=== PATIENT | female | born 1980 | race Caucasian/White ===

== ENCOUNTER 2019-05-17 12:31 | Emergency (ER) | payer OTHER, SELFPAY ==
[2019-05-17 12:48] VITALS: BP 107/71; PULSE 91; RESP 20; TEMP 37.3; O2SAT 100
--- NOTE | 2019-05-17 13:07 | ED.GENADULT ---
HPI - General Adult General Chief complaint: Upper Respiratory Infection Stated complaint: Cough/Chest Congestion Time Seen by Provider: 05/17/19 13:07 Source: patient and RN notes reviewed Mode of arrival: ambulatory Limitations: no limitations History of Present Illness HPI narrative: 38-year-old female presents with complains of upper respiratory symptoms and dry cough for 4 days. Tylenol Cold and flu (last 1 day ago) Mucinex (last this morning), and Nyquil (last 05/16/19) without relief. Constant dry cough, chest congestion, intermittent chest tenderness with coughing. Rhinorrhea and nasal congestion. Sore throat. Pain bilateral. Hurts to swallow. No high fevers, drooling, neck or throat swelling. No cardiac chest pain, wheezing, or shortness of breath. Nikki exacerbation factors consist of vaping. Denies nausea, vomiting, and abdominal pain. Tolerating liquids well. Nikki denies being , LMP 2 weeks ago and on control. Remains active. Some parts of this dictation were generated by voice recognition software and may contain typographical and/or grammatical inaccuracies. Related Data Home Medications Medication Instructions Recorded Confirmed citalopram [Celexa] 40 mg PO DAILY 05/17/19 05/17/19 norgestimate-ethinyl estradiol 1 tablet PO DAILY 05/17/19 05/17/19 [Ortho Tri-Cyclen (28)] Allergies Allergy/AdvReac Type Severity Reaction Status Date / Time No Known Allergies Allergy Verified 05/17/19 13:00 Review of Systems Review of Systems: Narrative: CONSTITUTIONAL: Denies fever, chills, sweats. EYES: Denies visual changes, redness, discharge. ENT: Complains of rhinorrhea, congestion, sore throat. Denies otalgia. CARDIOVASCULAR: Denies chest pain, palpitations, edema. RESPIRATORY: Denies dyspnea, wheezing. Complains of dry cough, chest congestion. GASTROINTESTINAL: Denies abdominal pain, nausea, vomiting, diarrhea. GENITOURINARY: Denies dysuria, hematuria, abnormal discharge. SKIN: Denies rash or itching. MUSCULOSKELETAL: Denies acute back pain, joint pain, or myalgia. Complains of intermittent diffuse chest wall tenderness. NEUROLOGIC: Denies numbness or focal weakness. PSYCHIATRIC: Denies anxiety or depression. [facility] Past Medical History Medical History (Updated 05/18/19 @ 00:00 by Background Daemon) Anxiety Depression Comments At time of signature, agree with nurse past medical, surgical, social, and family history. There is no relevant family history pertinent to the presenting complaint. Exam Narrative: Exam Narrative: GENERAL: This is a well-nourished, well-developed patient, in no apparent distress. Talks in full sentences and ambulates with steady gait without dyspnea. HEAD: normocephalic, atraumatic. EYES: PERRL. Sclera clear/white. Vision is grossly intact. EARS: External ears normal, auditory canals clear and without drainage, TMs normal without perforation. Hearing grossly intact. NOSE: External nose normal with no obvious nasal discharge, nares with mild redness and enlarged turbinates, yellow rhinorrhea. THROAT: Mucous membranes moist, posterior pharynx clear. Mild erythema, tonsils normal. NECK: Neck supple, non-tender without lymphadenopathy, masses or thyromegaly. CARDIOVASCULAR: Regular rate and rhythm without murmurs, gallops, or rubs. Diffused moderate reproducible tenderness to upper chest. No crepitus/subq air palpable. Skin intact. No ecchymosis or lesions. No subcutaneous emphysema. RESPIRATORY: Clear to auscultation. Breath sounds equal bilaterally. No wheezes, rales, or rhonchi. Dry cough. GASTROINTESTINAL: Abdomen soft, non-tender, nondistended. Bowel sounds are active. No hepato-splenomegaly, or palpable masses. No guarding. SKIN: warm, intact with no suspicious lesions or rash, good texture and turgor. NEURO: awake, alert, and oriented to person, place and time. There were no obvious focal neurologic abnormalities. EXTREMITIES: No clubbing, cyanosis, or e
== END 2019-05-17 13:27 | disposition home or self-care (01) ==
PROVIDERS: Emergency Provider Nurse Practitioner Family
DX: J40 Bronchitis, not specified as acute or chronic (principal); M94.0 Chondrocostal junction syndrome [Tietze]; F32.9 Major depressive disorder, single episode, unspecified; F41.9 Anxiety disorder, unspecified
CPT/HCPCS: 99213; G0463

== ENCOUNTER 2024-05-28 10:58 | Emergency (ER) | payer OTHER, SELFPAY ==
[2024-05-28 11:04] VITALS: BP 147/98; PULSE 91; RESP 18; TEMP 36.9; O2SAT 100
--- OUTSIDE RECORDS SUMMARY | 2024-05-28 11:38 | XMS_ITS | Referral Summary ---
Author Organization [facility] Physician Office Building [address] [place] [address] Care Team Providers Care Extrusion Supervisor Name Role Phone Ole Perez MD Primary Care Provider [phone] Ole Jiang MD Unavailable [phone] Westley Anthony MD Unavailable [phone] Binh Nelson MD Unavailable [phone] Allergies Active Allergy Reactions Criticality Noted Date Comments Gabapentin Other (See comments),Mental status changes Low 08/27/2022 Confusion, feels foggy can't think straight Medications ALPRAZolam (XANAX) 0.25 mg tablet Take 1 tablet (0.25 mg total) by mouth 3 (three) times a day as needed for anxiety 02/10/2020 Active citalopram (CeleXA) 20 mg tablet Take 1 tablet (20 mg total) by mouth nightly 03/10/2020 Active cyclobenzaprine (FLEXERIL) 10 mg tablet Take 1 tablet (10 mg total) by mouth 2 (two) times a day as needed for muscle spasms 40 tablet 08/23/2020 Active levothyroxine (SYNTHROID) 25 mcg tablet Take 1 tablet (25 mcg total) by mouth every morning 08/14/2022 Active acetaminophen (TYLENOL) 500 mg tabletIndicatio ns:Pain Take 2 tablets (1,000 mg total) by mouth every 6 (six) hours as needed for pain 60 tablet 10/17/2022 Active ibuprofen (ADVIL,MOTRIN) 600 mg tabletIndicatio ns:Pain Take 1 tablet (600 mg total) by mouth every 6 (six) hours as needed for pain 30 tablet 10/17/2022 Active polyethylene glycol (MIRALAX) 17 gram/dose powder Take 17 g by mouth daily 289 g 10/17/2022 Active oxyCODONE (ROXICODONE) 5 mg immediate release tabletIndicatio ns:Pain Take 1 tablet (5 mg total) by mouth every 4 (four) hours as needed for pain 15 tablet 10/17/2022 Active Active Problems Problem Noted Date Diagnosed Date Uterine bleeding 08/05/2022 Pelvic and perineal pain 08/05/2022 Perianal abscess 12/05/2021 s/p ALIF/PSF at L5-S1 with L 5 Rachel santiagoi on 04/04/[address] Soto 04/04/2020 Acute sinusitis 02/14/2014 Overview (07/26/2016): Acute sinusitis Immunizations Name Administration Dates Next Due Influenza, Unspecified 01/20/2020 Social History Tobacco Use Types Packs/Day Years Used Date Smoking Tobacco: Former Cigarettes Q uit: 03/28/2014 Smokeless Tobacco: Never Tobacco Cessation:Counseling Given: Not Answered Alcohol Use Standard Drinks/Week Comments Yes 0 (1 standard drink = 0.6 oz pur e alcohol) occasionally Social Connection and Isolat ion Panel [NHANES] Answer Date Recorded In a typical week, how many times do you talk on the phone with family, friends, or neighbors? More than three times a week 04/05/2020 How often do you get togethe r with friends or relatives? More than three times a week 04/05/2020 How often do you attend [facility] or latter day services? Never 04/05/2020 Do you belong to any clubs o r organizations such as sabianist groups, unions, fraternal or athletic groups, or school groups? No 04/05/2020 How often do you attend meet ings of the clubs or organizations you belong to? Never 04/05/2020 Are you , , di vorced, , never , or living with a partner? Never 04/05/2020 AUDIT-C Answer Date Recorded Q1: How often do you have a drink containing alc ohol? 2-4 times a month 08/27/2022 Q2: How many drinks containi ng alcohol do you have on a typical day when you are drinking? 1 or 2 08/27/2022 Q3: How often do you have si x or more drinks on one occasion? Never 08/27/2022 Overall Financial Resource Strain (CARDIA) Answe r Date Recorded How hard is it for you to pa y for the very basics like food, housing, medical care, and heating? Not hard at all 04/05/2020 Hunger Vital Sign Answer Date Recorded Within the past 12 months, y ou worried that your food would run out before you got the money to buy more. Never true 11/12/19 23 Within the past 12 months, t he food you bought just didn't last and you didn't have money to get more. Never true 11/11/2022 PRAPARE - Transportation Answer Date Re corded In the past 12 months, has l ack of transportation kept you from medical appointments or from getting medications? No 03/21 In the past 12 months, has l ack of transportation kept you from meetings, work, or from getting things needed for daily living? No 04/05/2020 Personal Safety Answer Date Recorded Have you ever been in or are you currently in a harmful physical or emotional relationship or is someone making you feel afraid or unsafe? 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 Gender Identity Not on file Sexual Orientation Not on file Last Filed Vital Signs Vital Sign Reading Time Taken Comments Blood Pressure 127/83 01/07/2023 1:19 PM CDT Pulse 83 01/07/2023 1:19 PM CDT Temperature 36.7 C (98 F) 11/11/2022 11:30 AM CDT Respiratory Rate 26 10/17/2022 11:40 AM CDT Oxygen Saturation 100% 01/07/2023 1:19 PM CDT Inhaled Oxygen Concentration - - Weight 76.2 kg (168 lb 1.6 oz) 01/07/2023 1:19 P M CDT Height 157.5 cm (5' 2 ) 11/11/2022 11:30 AM CDT Body Mass Index 30.75 11/11/2022 11:30 AM CDT Plan of Treatment Not on file Medical Devices Implanted Type Area Beater Out Device Identifier Shelf Expiration Date Model / Serial / Lot Medtronic Sofamor Danek [id number] Infuse Kit Xs Graft Bone Rhbmp-2 Bovine Collagen Lumbar Taper - [id number] Implanted:Qty: 1 on 04/04/2020 by Raman Soto MD at [facility] N/A: Spine Lumbar Medtronic Inc 12/19/2020 [id number] / / [id number] Maureen Spine [id number] 20d Cage Spinal Titanium Porous Sterile - [id number] Implanted:Qty: 1 on 04/04/2020 by Raman Soto MD at [facility] N/A: Spine Lumbar Papillion Spine 03/27/2024 [id number] / / [id number] Spinal Graft Tech [id number] Mayes Putty Jar Graft 5cc Bone Demineralized Bone Matrix - [id number] - [id number] Implanted:Qty: 1 on 04/04/2020 by Raman Soto MD at [facility] N/A: Spine Lumbar Medtronic Inc 01/05/2023 [id number] / [id number] / Maureen Spine [id number] [place] [id number] Spine Buttress Plate Bone Nonsterile - [id number] Implanted:Qty: 1 on 04/04/2020 by Raman Soto MD at [facility] N/A: Spine Lumbar Papillion Spine [id number] / / K2m Llc [id number] [place] Od6 Mm L24 Mm Implant; Buttress Spine Screw Bone Teal - [id number] Implanted:Qty: 1 on 04/04/2020 by Raman Soto MD at [facility] N/A: Spine Lumbar Maureen Spine [id number] / / K2m Llc [id number] [place] Spine Screw Set Mcgrath - [id number] Implanted:Qty: 4 on 04/04/2020 by Raman Soto MD at [facility] N/A: Spine Lumbar Maureen Spine [id number] / / K2m Llc [id number] [place] Od6.5 Mm L40 Mm Polyaxial Spine Screw Bone - [id number] Implanted:Qty: 4 on 04/04/2020 by Raman Soto MD at [facility] N/A: Spine Lumbar Papillion Spine [id number] / / K2m Llc [id number] Od5.5 Mm L40 Mm Contour Xander Spinal Mcgrath - [id number] Implanted:Qty: 2 on 04/04/2020 by Raman Soto MD at [facility] N/A: Spine Lumbar Papillion Spine [id number] / / Spinal Graft Tech [id number] Alejandra Putty Jar Graft 5cc Bone Demineralized Bone Matrix - [id number] - [id number] Implanted:Qty: 1 on 04/04/2020 by Raman Soto MD at [facility] N/A: Spine Lumbar Medtronic Inc 01/05/2023 [id number] / [id number] / [facility] Advance Directives For more information, please contact: [phone] * Full Code (Latest Code Status on File) Date Activated Date Inactivated Comments 10/17/2022 10:18 AM 10/17/2022 4:10 PM * Full Code Date Activated Date Inactivated Comments 04/04/2020 7:02 PM 04/06/2020 7:20 PM Care Teams Extrusion Supervisor Relationship Specialty Start Date End Date Ole Perez MD PCP - General 07/23/15 Ole Jiang MD [address] [place] [address] Referring Physician Surgery 11/19/21 Westley Anthony MD [phone] [place] [address] Surgeon Colon and Rectal Surgery 12/05/21 Binh Nelson MD [address] [place] [address] [address] Evaporator Operator Obstetrics and Gynecology 05/22/22
--- OUTSIDE RECORDS SUMMARY | 2024-05-28 11:38 | XMS_ITS | Clinical Summary ---
Author Organization [facility] Address [address] [place] [address] Phone Care Team Providers Care Iron Piler Name Role Phone Ole Perez MD Primary Care Provider [phone] Allergies No known active allergies Medications buPROPion (WELLBUTRIN) 300 MG TABLET SR 24 HR XL tablet 07/19/2020 Active ALPRAZolam (XANAX) 0.25 MG Tablet 07/03/2020 Acti ve citalopram (CeleXA) 20 MG Tablet 06/16/2020 Active oxyCODONE (ROXICODONE) 5 MG Tablet 07/04/2020 Active cyclobenzaprine (FLEXERIL) 10 MG Tablet 07/03/2020 Active Social History Tobacco Use Types Packs/Day Years Used Date Smoking Tobacco: Never Smokeless Tobacco: Never Alcohol Use Standard Drinks/Week Comments Yes 0 (1 standard drink = 0.6 oz pur e alcohol) Comments Unknown Sex and Gender Information Value Date Recorded Sex Assigned at Not on file Legal Sex Female 11:36 PM CDT Gender Identity Not on file Sexual Orientation Not on file Last Filed Vital Signs Vital Sign Reading Time Taken Comments Blood Pressure 119/76 07/27/2020 8:59 PM CDT Pulse 89 07/27/2020 8:59 PM CDT Temperature 37.1 C (98.7 F) 07/27/2020 5:05 PM CDT Respiratory Rate 20 07/27/2020 8:59 PM CDT Oxygen Saturation 99% 07/27/2020 8:59 PM CDT Inhaled Oxygen Concentration - - Weight 74.8 kg (165 lb) 07/27/2020 5:05 PM CDT Height 157.5 cm (5' 2 ) 07/27/2020 5:05 PM CDT Body Mass Index 30.18 07/27/2020 5:05 PM CDT Plan of Treatment Health Maintenance Due Date Last Done Comments Hepatitis C Virus (HCV) Screening 1981 TdaP Immunization 1981 Hepatitis B Immunization (1 of 3 - 19+ 3-dose series) 2000 Pap Smear 2002 Cervical Cancer Screening (CCS) 09/15/2011 HPV/Cotest 09/15/2011 Discussion re Starting/Frequ ency of Mammograms 2021 Influenza Immunization (#1) 2023 SARS-COV-2 Immunization ( - 2023- season) 2023 Respiratory Syncytial Virus (RSV) Immunization (Adult) (1 - 1-dose 75+ series) 2056 Meningococcal Immunization (ACWY) Aged Out No longer eligible based on patient's age to complete this topic Pneumococcal Immunization Combined Aged Out No longer eligible based on patient's age to complete this topic Rotavirus Immunization Aged Out No lo nger eligible based on patient's age to complete this topic Insurance MEDICAID REES MEDICAID [place]ES [place] MEDPA Care Teams Iron Piler Relationship Specialty Start Date End Date Ole Perez MD [address] [place] [phone] PCP - General Family Medicine 07/27/20
--- OUTSIDE RECORDS SUMMARY | 2024-05-28 11:38 | XMS_ITS | Clinical Summary ---
Author Organization [facility] Physician Office Building [address] [place] [address] Care Team Providers Care Searchlight Operator Name Role Phone Ole Perez MD Primary Care Provider [phone] Ole Jiang MD Unavailable [phone] Westley Anthony MD Unavailable [phone] Binh Nelson MD Unavailable [phone] Allergies Active Allergy Reactions Criticality Noted [...] ALIF/PSF at L5-S1 with L 5 Rachel ozuna on 04/04/[address] Soto 04/04/2020 Acute sinusitis 02/14/2014 Overview (07/26/2016): Acute sinusitis Immunizations Name Administration Dates Next Due Influenza, Unspecified 01/20/2020 Surgical History Surgery Date Site/Laterality Comments CHOLECYSTECTOMY 04/21/2007 - 04/20/2008 SECTION X 3 Medical History Medical History Date Comments Depression Depression Anxiety Spondylolisthesis at L5-S1 level Arthritis Neuropathy (CMS/HCC) Carpal tunnel syndrome right Family History Medical History Relation Name Comments Colon polyps Father Diverticulitis Father Diabetes Mother Heart disease Mother Hypertension Mother Relation Name Status Comments Father Mother Social History Tobacco Use Types Packs/Day Years [...] week 04/05/2020 How often do you attend chur ch or worship services? 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 Gender Identity Not on file Sexual Orientation Not on file Obstetrics History Last Filed Vital Signs Vital Sign Reading [...] 11/11/2022 11:30 AM CDT Plan of Treatment Health Maintenance Due Date Last Done Comments Breast Cancer Screening-Mammogram 1981 Depression Screening 1981 Hepatitis C Screening 1981 DTaP/Tdap/Td Vaccine (5 - Tdap) 1992 12/04/1988, 12/05/1987, 10/31/1986, Additional history exists Varicella Vaccines (1 of 2 - 13+ 2-dose series) 1994 Hepatitis B Screening 09/15/1999 Regular Well Visit/Exam 18-64 09/15/1999 Influenza Vaccine (#1) 2023 01/20/2020 HPV Vaccines Aged Out No longer eligi ble based on patient's age to complete this topic Pneumococcal vaccine <65 Aged Out No longer eligible based on patient's age to complete this topic Medical Devices Implanted Type Area Data Virtualization Consultant Device Identifier Shelf Expiration Date Model / Serial / Lot Medtronic Sofamor Danek [id number] Infuse Kit Xs Graft Bone Rhbmp-2 Bovine Collagen Lumbar Taper - [id number] Implanted:Qty: 1 on 04/04/2020 by Raman Soto MD at [facility] N/A: Spine Lumbar Medtronic Inc 12/19/2020 [id number] / / [id number] [place] Spine [id number] 20d Cage Spinal Titanium Porous Sterile - [id number] Implanted:Qty: 1 on 04/04/2020 by Raman Soto MD at [facility] N/A: Spine Lumbar [place] Spine 03/27/2024 [id number] / / [id number] Spinal Graft Tech [id number] Alejandra Putty Jar Graft 5cc Bone Demineralized Bone Matrix - [id number] - [id number] Implanted:Qty: 1 on 04/04/2020 by Raman Soto MD at [facility] N/A: Spine Lumbar Medtronic Inc 01/05/2023 [id number] / [id number] / [place] Spine 1408-40f22 [place] [id number] Spine Buttress Plate Bone Nonsterile - [id number] Implanted:Qty: 1 on 04/04/2020 by Raman Soto MD at [facility] N/A: Spine Lumbar [place] Spine [id number] / / K2m Llc [id number] [place] Od6 Mm L24 Mm Implant; Buttress Spine Screw Bone Teal - [id number] Implanted:Qty: 1 on 04/04/2020 by Raman Soto MD at [facility] N/A: Spine Lumbar [place] Spine [id number] / / K2m Llc [id number] [place] Spine Screw Set Mcgrath - [id number] Implanted:Qty: 4 on 04/04/2020 by Raman Soto MD at [facility] N/A: Spine Lumbar [place] Spine [id number] / / K2m Llc [id number] [place] Od6.5 Mm L40 Mm Polyaxial Spine Screw Bone - [id number] Implanted:Qty: 4 on 04/04/2020 by Raman Soto MD at [facility] N/A: Spine Lumbar [place] Spine [id number] / / K2m Llc [id number] Od5.5 Mm L40 Mm Contour Xander Spinal Mcgrath - [id number] Implanted:Qty: 2 on 04/04/2020 by Raman Soto MD at [facility] N/A: Spine Lumbar Maureen Spine [id number] / / Spinal Graft Tech [id number] Alejandra Putty Jar Graft 5cc Bone Demineralized Bone Matrix - [id number] - [id number] Implanted:Qty: 1 on 04/04/2020 by Raman Soto MD at [facility] N/A: Spine Lumbar Medtronic Inc 01/05/2023 [id number] / [id number] / Insurance [id number] [place] [address] Advance Directives For more information, please contact: [phone] * Full Code (Latest Code Status on File) Date Activated Date Inactivated Comments 10/17/2022 10:18 AM 10/17/2022 4:10 PM * Full Code Date Activated Date Inactivated Comments 04/04/2020 7:02 PM 04/06/2020 7:20 PM Care Teams Searchlight Operator Relationship Specialty Start Date End Date Ole Perez MD PCP - General 07/23/15 Ole Jiang MD [address] [place] [address] Referring Physician Surgery 11/19/21 Westley Anthony MD [phone] [place] [address] Surgeon Colon and Rectal Surgery 12/05/21 Binh Nelson MD [address] [place] [address] [address] Ticket Broker Obstetrics and Gynecology 05/22/22
--- NOTE | 2024-05-28 11:58 | ED_ITS ---
HPI - Ear Problem General Chief complaint: Ear Stated complaint: ear pain Time Seen by Provider: 05/28/24 11:58 Source: patient Mode of arrival: ambulatory Limitations: no limitations History of Present Illness HPI Narrative: 43-year-old female presents with complaint of sinus congestion, sinus pressure and headaches for the past 2-3 weeks. Reports intermittent fevers over the last 3 days with pressure to bilateral ears. Taking [id number]-[id number] sinus medications without relief of symptoms. All systems reviewed and negative except as noted above. Related Data Home Medications ?Medication ?Instructions ?Recorded ?Confirmed ?Last Taken ?Type citalopram 40 mg tablet (Celexa) 40 mg PO DAILY 05/17/19 05/17/19 Unknown History norgestimate-ethinyl estradiol 1 tablet PO DAILY 05/17/19 05/17/19 Unknown History 0.18 mg/0.215mg/0.25mg-35 mcg(28)tablet (Ortho Tri-Cyclen (28)) alprazolam 0.25 mg tablet mg 05/28/24 Unknown History cyclobenzaprine 10 mg tablet mg 05/28/24 Unknown History levothyroxine 25 mcg tablet mcg 05/28/24 Unknown History tramadol 50 mg tablet mg 05/28/24 Unknown History Allergies Allergy/AdvReac Type Severity Reaction Status Date / Time No Known Allergies Allergy Verified 05/28/24 11:20 Review of Systems 2 Review of Systems: CONSTITUTIONAL: Denies fever, chills, or sweats. EYES: Denies visual changes, redness, or discharge. ENT: Reports rhinorrhea, congestion, sinus pressure, bilateral ear pressure. Denies sore throat CARDIOVASCULAR: Denies chest pain, palpitations, or edema. RESPIRATORY: Denies cough or dyspnea. GASTROINTESTINAL: Denies abdominal pain, nausea, vomiting, or diarrhea. GENITOURINARY: Denies dysuria or hematuria. SKIN: Denies rash or itching. MUSCULOSKELETAL: Denies back pain, joint pain, or myalgia. NEUROLOGIC: Denies headache, numbness, or weakness. PSYCHIATRIC: Denies anxiety or depression. All other systems reviewed are negative, except as documented in HPI. [facility] Past Medical History Medical History (Updated 05/28/24 @ 12:03 by Jeanette Valdez NP) Depression Anxiety Comments At time of signature, agree with nursing past medical, surgical, social and family history. There is no relevant family history pertinent to the presenting complaint. Exam Narrative: GENERAL: This is a well-nourished, well-developed patient, Ill-appearing but no acute distress HEAD: normocephalic, atraumatic. EYES: PERRL. Sclera clear/white. Vision is grossly intact. EARS: External ears normal, auditory canals clear and without drainage, TMs normal without perforation. Hearing grossly intact. NOSE: External nose normal with purulent nasal drainage, erythema and swelling to bilateral nares. Frontal and maxillary sinus tenderness on palpation bilaterally. THROAT: Mucous membranes moist, posterior pharynx clear. NECK: Neck supple, non-tender without lymphadenopathy, masses or thyromegaly. CARDIOVASCULAR: Regular rate and rhythm without murmurs, gallops, or rubs. RESPIRATORY: Clear to auscultation. Breath sounds equal bilaterally. No wheezes, rales, or rhonchi. SKIN: warm, Dry, intact with no suspicious lesions or rash, good texture and turgor. NEURO: awake, alert, and oriented to person, place and time. There were no obvious focal neurologic abnormalities. EXTREMITIES: No joint tenderness, effusion, or edema noted. Course Course Level of Care: Express Care Visit Vital Signs Vital signs: Vital Signs Temperature 36.9 C 05/28/24 11:04 Pulse Rate 91 05/28/24 11:04 Respiratory Rate 18 05/28/24 11:04 Blood Pressure 147/98 H 05/28/24 11:04 Pulse Oximetry 100 05/28/24 11:04 Oxygen Delivery Room Air 05/28/24 11:04 Temperature 36.9 C 05/28/24 11:04 Pulse Rate 91 05/28/24 11:04 Respiratory Rate 18 05/28/24 11:04 Blood Pressure 147/98 H 05/28/24 11:04 Pulse Oximetry 100 05/28/24 11:04 Oxygen Delivery Room Air 05/28/24 11:04 reviewed Medical Decision Making MDM Narrative Medical decision making narrative: will treat patient for bacterial sinusitis due to duration of symptoms and exam findings. Lung sounds clear to auscultation. Patient is alert, nontoxic. Please be advised this is a medical document. It is intended for [id number] communication. It is written in medical language and may contain unfamiliar abbreviations or verbiage. Medical documents are intended to carry relevant information, facts as evident, and the clinical opinion of the practitioner at the time of the encounter. This report may have been done utilizing a voice recognition system. Attempts have been made to correct errors. However, there may be uncorrected grammatical, spelling, and recognition errors present. The file time of this note does not necessarily represent the time of service. Vital Signs Vital Signs: Vital Signs Temperature 36.9 C 05/28/24 11:04 Pulse Rate 91 05/28/24 11:04 Respiratory Rate 18 05/28/24 11:04 Blood Pressure 147/98 H 05/28/24 11:04 Pulse Oximetry 100 05/28/24 11:04 Oxygen Delivery Room Air 05/28/24 11:04 Temperature 36.9 C 05/28/24 11:04 Pulse Rate 91 05/28/24 11:04 Respiratory Rate 18 05/28/24 11:04 Blood Pressure 147/98 H 05/28/24 11:04 Pulse Oximetry 100 05/28/24 11:04 Oxygen Delivery Room Air 05/28/24 11:04 Discharge Plan Discharge Clinical Impression: Acute bacterial sinusitis Patient Disposition: Home, Self-Care Condition: Stable Instructions: Antibiotic Form, Sinusitis (ED) Additional Instructions: take antibiotic as prescribed until gone. Continue taking ilsw-tay-awiafgy medication to treat her symptoms such as DayQuil NyQuil cold and Sinus. May use an hncl-nbb-tdqwecm nasal spray such as Flonase or Nasacort as directed on packaging. Place cool mist humidifier in bedroom where you sleep. Follow-up with your primary care physician if symptoms are not improving. Patient Language: Citizen Of [place] Prescriptions: New amoxicillin-pot clavulanate 875-125 mg tablet 1 tablet PO Q12H 7 Days Qty: 14 0RF No Action citalopram [Celexa] 40 mg Tablet 40 mg PO DAILY norgestimate-ethinyl estradiol [Ortho Tri-Cyclen (28)] 0.18/0.215/0.25 mg-35 mcg (28) Tablet 1 tablet PO DAILY loratadine [Claritin] 10 mg tablet 10 mg PO DAILY 60 Days Qty: 60 0RF cyclobenzaprine 10 mg tablet tramadol 50 mg tablet levothyroxine 25 mcg tablet alprazolam 0.25 mg tablet Follow-up/Referrals: Ana,MD Ole [Primary Care Provider] - Time of Disposition: 12:04
== END 2024-05-28 12:12 | disposition home or self-care (01) ==
PROVIDERS: Emergency Provider Nurse Practitioner Family; PCP Family Medicine
DX: J01.90 Acute sinusitis, unspecified (principal); F41.9 Anxiety disorder, unspecified; F32.A Depression, unspecified
CPT/HCPCS: 99213; G0463